=== PATIENT | male | born 1935 | race Caucasian/White ===

== ENCOUNTER 2017-01-25 09:55 | Outpatient (CLI) | payer MEDICARE, BC | END 2017-01-25 23:59 | disposition home or self-care (01) | LOC: RAD 09:55 | PROVIDERS: ATTEND Internal Medicine Hematology & Oncology | DX: M47.893 Other spondylosis, cervicothoracic region (principal); M47.896 Other spondylosis, lumbar region; M17.0 Bilateral primary osteoarthritis of knee; D47.2 Monoclonal gammopathy; I51.7 Cardiomegaly; J84.9 Interstitial pulmonary disease, unspecified; I70.0 Atherosclerosis of aorta | CPT/HCPCS: 77075-TC ==

== ENCOUNTER 2017-02-07 11:04 | Outpatient (CLI) | payer MEDICARE, BC | END 2017-02-07 23:59 | disposition home or self-care (01) | LOC: MRI 11:04 | PROVIDERS: ATTEND Internal Medicine Hematology & Oncology | DX: M48.06 Spinal stenosis, lumbar region (principal); M47.896 Other spondylosis, lumbar region; M12.88 Other specific arthropathies, not elsewhere classified, other specified site; M53.87 Other specified dorsopathies, lumbosacral region; M71.38 Other bursal cyst, other site; R15.9 Full incontinence of feces; R32 Unspecified urinary incontinence; C90.00 Multiple myeloma not having achieved remission; R53.1 Weakness | CPT/HCPCS: 72148-TC ==

== ENCOUNTER 2017-02-25 08:36 | Outpatient (CLI) | payer MEDICARE, BC | END 2017-02-25 23:59 | LOC: CT 08:36 | PROVIDERS: ATTEND Internal Medicine Hematology & Oncology | DX: Z51.11 Encounter for antineoplastic chemotherapy (principal); C90.00 Multiple myeloma not having achieved remission; D47.2 Monoclonal gammopathy; I67.2 Cerebral atherosclerosis; I67.82 Cerebral ischemia; G31.9 Degenerative disease of nervous system, unspecified | CPT/HCPCS: 70450-TC ==

== ENCOUNTER 2017-05-13 09:49 | Outpatient (CLI) | payer MEDICARE, BC | END 2017-05-13 23:59 | disposition home or self-care (01) | LOC: RAD 09:49 | PROVIDERS: ATTEND Internal Medicine Hematology & Oncology | DX: M47.896 Other spondylosis, lumbar region (principal); Z85.79 Personal history of other malignant neoplasms of lymphoid, hematopoietic and related tissues | CPT/HCPCS: 78306; A9503 ==

== ENCOUNTER 2017-06-22 10:11 | Outpatient (CLI) | payer MEDICARE, BC | END 2017-06-22 23:59 | disposition home or self-care (01) | LOC: RAD 10:11 | PROVIDERS: ATTEND Internal Medicine Hematology & Oncology | DX: M21.852 Other specified acquired deformities of left thigh (principal); M21.851 Other specified acquired deformities of right thigh; Z85.79 Personal history of other malignant neoplasms of lymphoid, hematopoietic and related tissues | CPT/HCPCS: 72170-TC ==

== ENCOUNTER 2017-08-31 10:56 | Outpatient (CLI) | payer OTHER | END 2017-08-31 23:59 | disposition home or self-care (01) | LOC: RAD 10:56 | PROVIDERS: ATTEND Internal Medicine Hematology & Oncology | DX: S22.31XA Fracture of one rib, right side, initial encounter for closed fracture (principal); I70.0 Atherosclerosis of aorta; C90.00 Multiple myeloma not having achieved remission; X58.XXXA Exposure to other specified factors, initial encounter; Y93.89 Activity, other specified; Y92.89 Other specified places as the place of occurrence of the external cause; Y99.8 Other external cause status | CPT/HCPCS: 71100-TC ==

== ENCOUNTER 2018-03-06 10:21 | Outpatient (CLI) | payer OTHER | END 2018-03-06 23:59 | disposition home or self-care (01) | LOC: CT 10:21 | PROVIDERS: ATTEND Internal Medicine Hematology & Oncology | DX: I67.82 Cerebral ischemia (principal); I67.2 Cerebral atherosclerosis; G93.89 Other specified disorders of brain; Z91.81 History of falling | CPT/HCPCS: 70450-TC ==

== ENCOUNTER 2018-12-06 09:04 | Outpatient (CLI) | payer MEDICARE | END 2018-12-06 23:59 | disposition home or self-care (01) | LOC: CT 09:04 | PROVIDERS: ATTEND Internal Medicine Hematology & Oncology | DX: G31.9 Degenerative disease of nervous system, unspecified (principal); I67.82 Cerebral ischemia; R90.82 White matter disease, unspecified; F82 Specific developmental disorder of motor function | CPT/HCPCS: 70450-TC ==

== ENCOUNTER 2018-12-13 10:38 | Outpatient (CLI) | payer MEDICARE ==
[2018-12-13] MEDS ORDERED: GADODIAMIDE 2.5 MMOL/5 ML VIAL ONE (16:47)
[2018-12-13] MEDS ORDERED: GADODIAMIDE 5 MMOL/10 ML VIAL ONE (16:47)
== END 2018-12-13 23:59 | disposition home or self-care (01) ==
LOC: MRI 10:38
PROVIDERS: ATTEND Internal Medicine Hematology & Oncology
DX: I63.89 Other cerebral infarction (principal)
CPT/HCPCS: 70553; A9579 ×2

== ENCOUNTER 2019-02-09 11:33 | Outpatient (CLI) | payer MEDICARE | END 2019-02-09 23:59 | disposition home or self-care (01) | LOC: CARD 11:33 | PROVIDERS: ATTEND Internal Medicine Hematology & Oncology | DX: M79.604 Pain in right leg (principal); M79.605 Pain in left leg; R22.43 Localized swelling, mass and lump, lower limb, bilateral | CPT/HCPCS: 93970-TC ==

== ENCOUNTER 2019-03-02 08:45 | Outpatient (CLI) | payer MEDICARE, BC | END 2019-03-02 23:59 | disposition home or self-care (01) | LOC: RAD 08:45 | PROVIDERS: ATTEND Internal Medicine Hematology & Oncology | DX: M85.89 Other specified disorders of bone density and structure, multiple sites (principal); M16.0 Bilateral primary osteoarthritis of hip; I70.0 Atherosclerosis of aorta; M75.92 Shoulder lesion, unspecified, left shoulder; M48.02 Spinal stenosis, cervical region; C90.00 Multiple myeloma not having achieved remission; C61 Malignant neoplasm of prostate | CPT/HCPCS: 77075; 78306; A9503 ==

== ENCOUNTER 2019-09-11 09:40 | Outpatient (CLI) | payer MEDICARE, BC ==
[2019-09-11] MEDS ORDERED: GADOTERIDOL 279.3 MG/ML VIAL IV ONE ×2 (09:41)
== END 2019-09-11 23:59 | disposition home or self-care (01) ==
LOC: MRI 09:40
PROVIDERS: ATTEND Internal Medicine Hematology & Oncology
DX: M47.812 Spondylosis without myelopathy or radiculopathy, cervical region (principal); M48.02 Spinal stenosis, cervical region; M47.816 Spondylosis without myelopathy or radiculopathy, lumbar region; M48.061 Spinal stenosis, lumbar region without neurogenic claudication; M25.78 Osteophyte, vertebrae; G95.81 Conus medullaris syndrome; C90.00 Multiple myeloma not having achieved remission; R27.0 Ataxia, unspecified; R15.9 Full incontinence of feces; R32 Unspecified urinary incontinence
CPT/HCPCS: 70553; 72141; 72146; 72148; A9579 ×2